=== PATIENT | female | born 1945 | race Caucasian/White ===

== ENCOUNTER 2023-06-13 07:58 | Day surgery (SDC) | payer MEDICARE ==
[2023-06-13] MEDS ORDERED: fentaNYL 100 MCG/2 ML SDV IV ONE (07:59)
[2023-06-13] MEDS ORDERED: Sodium Chloride 0.9% 10 ML Syringe IV ONE (07:59)
[2023-06-13] MEDS ORDERED: Ondansetron 4 MG/2 ML SDV IVPUSH ONE (07:59)
[2023-06-13] MEDS ORDERED: Midazolam 1 MG/ML 2 ML SDV IV ONE (07:59)
[2023-06-13] MEDS ORDERED: Lactated Ringers 1,000 ML IV PRN (08:00)
[2023-06-13] MEDS: Sodium Chloride 0.9% 10 ML Syringe FLUSH PRN (08:48)
[2023-06-13] MEDS: acetaZOLAMIDE 500 MG Cap.ER PO ONE (10:26)
== END 2023-06-13 10:42 | disposition home or self-care (01) ==
LOC: FB.SDS 07:58
PROVIDERS: ATTEND Ophthalmology
DX: H26.9 Unspecified cataract (principal); I10 Essential (primary) hypertension; E78.5 Hyperlipidemia, unspecified; Z88.5 Allergy status to narcotic agent; Z79.899 Other long term (current) drug therapy
CPT/HCPCS: 66984; A9270; J2250; J2405; J3010; J3490; V2632; 00142; 99100

== ENCOUNTER 2023-06-27 08:55 | Day surgery (SDC) | payer MEDICARE ==
[2023-06-27] MEDS ORDERED: Midazolam 1 MG/ML 2 ML SDV IV ONE (08:56)
[2023-06-27] MEDS ORDERED: fentaNYL 100 MCG/2 ML SDV IV ONE (08:56)
[2023-06-27] MEDS ORDERED: Ondansetron 4 MG/2 ML SDV IVPUSH ONE (08:56)
[2023-06-27] MEDS ORDERED: Lactated Ringers 1,000 ML IV PRN (09:00)
[2023-06-27] MEDS: Sodium Chloride 0.9% 10 ML Syringe FLUSH PRN (09:33)
[2023-06-27] MEDS: acetaZOLAMIDE 500 MG Cap.ER PO ONE (10:28)
== END 2023-06-27 10:56 | disposition home or self-care (01) ==
LOC: FB.SDS 08:55
PROVIDERS: ATTEND Ophthalmology
DX: H26.9 Unspecified cataract (principal); I10 Essential (primary) hypertension; E78.00 Pure hypercholesterolemia, unspecified; Z79.899 Other long term (current) drug therapy; Z88.5 Allergy status to narcotic agent
CPT/HCPCS: 00142; 99100; A9270-GY; J2250; J2405; J3010; J3490; V2632